=== PATIENT | female | born 1990 ===

== ENCOUNTER 2017-07-26 05:07 | Emergency (ER) | payer BC ==
--- NOTE | 2017-07-26 06:00 | C.PDOC ---
History Of Present Illness 26 year old female presents to the ED c/o vaginal bleeding. Patient reports her LMP was on Match , had 2 test done at home one was positive and the other one negative. Patient states she is 5 weeks by date. Patient reports last night she started with vaginal spotting now bleeding. Patient is concerned. Patient denies abdominal pain, nausea, vomit, diarrhea, fever, chills , dysuria, hematuria. Time Seen by Provider: 07/26/17 05:30 Chief Complaint (Nursing): Female Genitourinary History Per: Patient History/Exam Limitations: no limitations Onset/Duration Of Symptoms: Days Current Symptoms Are (Timing): Still Present Quality Of Discomfort: "Pain" Alleviating Factors: None Recent travel outside of the [place]: No Additional History Per: Patient Abnormal Vaginal Bleeding: Yes Last Menstral Period: 06/18/17 Past Medical History Reviewed: Historical Data, Nursing Documentation, Vital Signs Vital Signs: Last Vital Signs Temp 98 F 07/26/17 05:11 Pulse 98 H 07/26/17 05:11 Resp 20 07/26/17 05:11 BP 117/82 07/26/17 05:11 Pulse Ox 100 07/26/17 06:03 - Medical History PMH: No Chronic Diseases Surgical History: No Surg Hx Family History: States: Unknown Family Hx - Social History Hx Alcohol Use: No Hx Substance Use: No - Immunization History Hx Tetanus Toxoid Vaccination: No Hx Influenza Vaccination: No Hx Pneumococcal Vaccination: No Review Of Systems Constitutional: Negative for: Fever, Chills Cardiovascular: Negative for: Chest Pain Respiratory: Negative for: Shortness of Breath Gastrointestinal: Negative for: Abdominal Pain Genitourinary: Positive for: Vaginal Discharge, Vaginal Bleeding Musculoskeletal: Negative for: Back Pain Skin: Negative for: Rash Physical Exam - Physical Exam Appears: Non-toxic, No Acute Distress Skin: Warm, Dry Head: Normacephalic Eye(s): bilateral: Normal Inspection Nose: No Discharge Oral Mucosa: Moist Neck: Normal ROM, Supple Chest: Symmetrical Cardiovascular: Rhythm Regular, No Murmur Respiratory: Normal Breath Sounds, No Rales, No Rhonchi, No Wheezing Gastrointestinal/Abdominal: Soft, No Tenderness, No Guarding, No Rebound Pelvic: Vaginal Bleeding (no clots), No Cervix Open (closed) Extremity: Normal ROM, No Tenderness, No Swelling Neurological/Psych: Oriented x3, Normal Motor, Normal Sensation Gait: Steady ED Course And Treatment O2 Sat by Pulse Oximetry: 100 (On RA) Pulse Ox Interpretation: Normal Progress Note: Plan: - Labs. - UA. UCG test was negative in the ED, patient insisted UGC done at the clinic was positive. Beta HCG was ordered and is 15. Pt is advised to follow up with OB clinic in 1 month for repeat test Disposition - Disposition Referrals: [facility] [Outside] Disposition: HOME/ ROUTINE Disposition Time: 06:53 Condition: IMPROVED Additional Instructions: Sigue en clinica en 1 mes para repetar la prueba de embarazada Regresa si mucho dolor ventral, fiebre o peor Instructions: Heavy Periods (DC) Forms: [employer] (Belizean) Print Language: CENTRAL AFRICAN - Clinical Impression Clinical Impression: Vaginal bleeding - PA / [employer] / Resident Statement MD/DO has reviewed & agrees with the documentation as recorded. - Scribe Statement The provider has reviewed the documentation as recorded by the Scribe Wolfgang Gates All medical record entries made by the Scribe were at my direction and personally dictated by me. I have reviewed the chart and agree that the record accurately reflects my personal performance of the history, physical exam, medical decision making, and the department course for this patient. I have also personally directed, reviewed, and agree with the discharge instructions and disposition.
[2017-07-26 07:14] VITALS: BP 129/75; PULSE 88; RESP 18; TEMP 98.2; O2SAT 99
== END 2017-07-26 07:14 | disposition home or self-care (01) ==
LOC: C.ER 05:07
DX: N93.9 Abnormal uterine and vaginal bleeding, unspecified (principal)